=== PATIENT | male | born 1980 | race Caucasian/White ===

== ENCOUNTER 2018-11-28 17:55 | Emergency (ER) | payer OTHER ==
[~2018-11-28] VITALS: Ht 170.2 cm; Wt 70.7 kg
[2018-11-28 17:57] VITALS: BP 128/81
[2018-11-28] MEDS ORDERED: cloNIDine 0.1 mg tablet PO ONE (18:20)
[2018-11-28] MEDS ORDERED: ondansetron 4mg rapidly disintigrating tab PO ONE (18:20)
[2018-11-28] MEDS ORDERED: LOPE2TAB25 PO (18:23)
[2018-11-28] MEDS ORDERED: CLON-529 PO (18:23)
[2018-11-28] MEDS ORDERED: ONDA4TAB6 PO (18:23)
== END 2018-11-28 18:33 | disposition home or self-care (01) ==
LOC: ER 17:57
DX: F11.23 Opioid dependence with withdrawal (principal); R07.89 Other chest pain; F17.220 Nicotine dependence, chewing tobacco, uncomplicated; Z60.2 Problems related to living alone; Z59.0 Homelessness; Z79.899 Other long term (current) drug therapy
CPT/HCPCS: 99283

== ENCOUNTER 2019-01-08 21:16 | Emergency (ER) | payer MEDICAID ==
[~2019-01-08] VITALS: Ht 170.2 cm; Wt 79.0 kg
[~2019-01-08 21:16] MED LIST: CLON-529 PO; LOPE2TAB25 PO; ONDA4TAB6 PO
[2019-01-08 21:54] VITALS: BP 107/67
--- NOTE | 2019-01-08 22:05 | NUR ---
no appropriate RAP assessment. pt has no pain/complaints and did not hit any part of his body in the car
== END 2019-01-09 00:10 ==
LOC: ER 21:16
DX: F11.90 Opioid use, unspecified, uncomplicated (principal); Z79.899 Other long term (current) drug therapy; Z59.0 Homelessness; V43.52XA Car driver injured in collision with other type car in traffic accident, initial encounter; Y93.89 Activity, other specified; Y92.488 Other paved roadways as the place of occurrence of the external cause; Y99.8 Other external cause status
CPT/HCPCS: 99284